=== PATIENT | female | born 1985 | race Caucasian/White ===

== ENCOUNTER → 2016-09-21 | Outpatient (CLI) | payer BC ==
[~2016-09-21] MED LIST: IBUP-1427 PO; OXYC-643 PO; PRENTAB26 PO
--- NOTE | 2016-09-21 12:15 | DIAGNOSTIC IMAGING REPORT ---
HYSTEROSALPINGOGRAM HISTORY: Infertility. FLUOROSCOPY TIME: 0.5 minutes. TECHNIQUE: The cervix was cannulated by the governor assembler hydraulic-guncotton packer and water soluble contrast was instilled into the uterus under fluoroscopic guidance. Multiple spot images were obtained. FINDINGS: The uterine cavity is normal in size, shape, and position. The fallopian tubes are patent and there is free peritoneal spill bilaterally. IMPRESSION: Normal hysterosalpingogram. Electronically signed by: Errol Quiñonez M.D. 09/21/2016 12:13 PM Dictated Date/Time: 09/21/2016 12:12 PM
--- NOTE | 2016-09-21 12:23 | OPERATIVE REPORT ---
DATE OF OPERATION: 09/21/2016 PREOPERATIVE DIAGNOSIS: Infertility. POSTOPERATIVE DIAGNOSIS: Same. PROCEDURES: Hysterosalpingogram. SURGEON: Dr. Quintanilla. ANESTHESIA: None. PROCEDURE: The patient was met in the radiology suite where she was identified verbally and by bracelet. We confirmed that we were doing hysterosalpingogram. Her last menstrual period was approximately 1 week ago and she had taken her preoperative antibiotic. The patient was placed in frogleg position, the speculum was placed and the cervix was cleaned with Betadine. The anterior lip of the cervix was grasped with a single tooth tenaculum. The introducer was placed into the cervix. The radiologist was called for. The dye was instilled to the cervix until appropriate pictures were taken by Dr. Wheelerowitz the radiologist. The procedure was terminated. All instruments removed from the vagina. Some oozing from the tenaculum site was attended to with pressure until hemostasis was assured. The patient tolerated the procedure well and was discharged to home. I attest to the content of the Intraoperative Record and any orders documented therein. Any exceptio ns are noted below.
== END | disposition home or self-care (01) ==
LOC: C.RAD 10:52
PROVIDERS: ATTEND Obstetrics & Gynecology
DX: Z31.41 Encounter for fertility testing (principal)

== ENCOUNTER → 2016-10-16 | Outpatient (CLI) | payer BC ==
[2016-10-16 10:17] LABS: PROLACTIN 11.05 ng/mL
== END | disposition home or self-care (01) ==
LOC: C.LAB 08:30
PROVIDERS: ATTEND Obstetrics & Gynecology
DX: Z31.41 Encounter for fertility testing (principal)

== ENCOUNTER → 2016-10-19 | Outpatient (CLI) | payer BC | END | disposition home or self-care (01) | LOC: C.PAPS 09:57 | PROVIDERS: ATTEND Obstetrics & Gynecology | DX: Z01.419 Encounter for gynecological examination (general) (routine) without abnormal findings (principal); Z00.00 Encounter for general adult medical examination without abnormal findings ==

== ENCOUNTER → 2017-01-20 | Outpatient (CLI) | payer BC ==
[2017-01-20 10:48] LABS: SEMEN VOLUME 2.5 ML
== END | disposition home or self-care (01) ==
LOC: C.LAB 10:24
PROVIDERS: ATTEND Obstetrics & Gynecology
DX: N97.9 Female infertility, unspecified (principal)

== ENCOUNTER → 2017-03-14 | Outpatient (CLI) | payer BC | END | disposition home or self-care (01) | LOC: C.LAB 07:28 | PROVIDERS: ATTEND Obstetrics & Gynecology | DX: N97.9 Female infertility, unspecified (principal) ==

== ENCOUNTER → 2017-03-15 | Outpatient (CLI) | payer BC | END | disposition home or self-care (01) | LOC: C.LAB 12:15 | PROVIDERS: ATTEND Obstetrics & Gynecology | DX: N97.9 Female infertility, unspecified (principal) ==

== ENCOUNTER → 2017-04-11 | Outpatient (CLI) | payer BC | END | disposition home or self-care (01) | LOC: C.LAB 11:12 | PROVIDERS: ATTEND Obstetrics & Gynecology | DX: N97.9 Female infertility, unspecified (principal) ==

== ENCOUNTER → 2017-04-12 | Outpatient (CLI) | payer BC | END | disposition home or self-care (01) | LOC: C.LAB 12:18 | PROVIDERS: ATTEND Obstetrics & Gynecology | DX: N97.9 Female infertility, unspecified (principal) ==